=== PATIENT | female | born 1960 | race African-American/Black ===

== ENCOUNTER 2017-08-25 20:24 | Observation (INO) ==
[2017-08-25] MEDS ORDERED: COCAINE SUBSTITUTE 30 ML BOTTLE TOP STA (21:03)
[2017-08-25] MEDS ORDERED: ONDANSETRON 4 MG/2 ML VIAL IV PRN (23:51)
[2017-08-25] MEDS ORDERED: SODIUM CHLORIDE 0.45% 1,000 ML IV SCH (23:51)
[2017-08-26 11:05] VITALS: BP 106/63
[2017-08-26] MEDS ORDERED: SILVER NITRATE STICK 1 EACH TOP ONE ×2 (11:45→11:46)
== END 2017-08-26 14:40 | disposition home or self-care (01) ==
LOC: N.EDINP 20:24 → N.ED 20:24 → N.3E 23:45
PROVIDERS: ADMIT Otolaryngology; ATTEND Otolaryngology